=== PATIENT | female | born 1955 | race Caucasian/White ===

== ENCOUNTER 2016-08-27 02:20 | Emergency (ER) | payer BC ==
[2016-08-27] MEDS ORDERED: Sodium Chloride 0.9% 10 ML Syringe FLUSH PRN (02:32)
[2016-08-27] MEDS ORDERED: Sodium Chloride 0.9% 1,000 ML IV ONE (02:32)
[2016-08-27] MEDS ORDERED: Ondansetron 4 MG/2 ML SDV IVPUSH ONE (02:32)
[2016-08-27] MEDS ORDERED: Sodium Chloride 0.9% 2.5 ML Syringe FLUSH PRN (02:32)
--- NOTE | 2016-08-27 02:37 | EDM.PDOC ---
ED HPI GENERAL MEDICAL PROBLEM - General Chief Complaint: Abdominal Pain Stated Complaint: THROWING UP Time Seen by Provider: 08/27/16 02:26 - History of Present Illness INITIAL COMMENTS - FREE TEXT/NARRATIVE: HISTORY AND PHYSICAL: History of present illness: Patient's a 60-year-old female who's had prior cholecystectomy appendectomy and hysterectomy who presents with a concern of nausea and vomiting 1 hour she's had some crampy abdominal pain she denies fever chills urinary symptoms or any other concern is been no trauma she denies chest pain shortness of breath Review of systems: As per history of present illness and below otherwise all systems reviewed and negative. Past medical history: As per history of present illness and as reviewed below otherwise noncontributory. Surgical history: As per history of present illness and as reviewed below otherwise noncontributory. Social history: No reported history of drug or alcohol abuse. Family history: As per history of present illness and as reviewed below otherwise noncontributory. Physical exam: HEENT: Atraumatic, normocephalic, pupils reactive, negative for conjunctival pallor or scleral icterus, mucous membranes moist, throat clear, neck supple, nontender, trachea midline. Lungs: Clear to auscultation, breath sounds equal bilaterally, chest nontender. Heart: S1S2, regular, negative for clicks, rubs, or JVD. Abdomen: Soft, nondistended, nontender. Negative for masses or hepatosplenomegaly. Negative for costovertebral tenderness. Pelvis: Stable nontender. Genitourinary: Deferred. Rectal: Deferred. Extremities: Atraumatic, negative for cords or calf pain. Neurovascular unremarkable. Neuro: Awake, alert, oriented. Cranial nerves II through XII unremarkable. Cerebellum unremarkable. Motor and sensory unremarkable throughout. Exam nonfocal. Diagnostics: CBC CMP amylase lipase UA EKG chest x-ray CT abdomen and pelvis Therapeutics: Normal saline 1 L bolus Zofran 4 mg IV Impression: #1 vomiting Definitive disposition and diagnosis as appropriate pending reevaluation and review of above. Abdominal Pain Score (Numeric/FACES): 7 - Related Data Allergies Allergy/AdvReac Type Severity Reaction Status Date / Time acetaminophen Allergy Nausea Verified 08/27/16 02:32 [From Tylenol-Codeine] codeine phosphate Allergy Nausea Verified 08/27/16 02:32 [From Tylenol-Codeine] Iodinated Contrast- Oral and Allergy Rash Verified 08/27/16 02:32 IV Dye [Iodinated Contrast Media - IV Dye] morphine Allergy Nausea Verified 08/27/16 02:32 shellfish Allergy Hives Uncoded 08/27/16 02:32 Home Meds: Home Meds Levothyroxine [Levothroid] 125 mcg PO DAILY 12/13/13 [History] Past Medical History - Past Surgical History Other Neurological Surgeries/Procedures: BACK SURGERY Other Musculoskeletal Surgeries/Procedures:: Pt states multiple back surgeries, 11 screws Social & Family History - Tobacco Use Smoking Status *Q: Current Every Day Smoker Years of Tobacco use: 40 Packs/Tins Daily: 0.2 - Alcohol Use Days Per Week of Alcohol Use: 0 - Recreational Drug Use Recreational Drug Use: No ED ROS GENERAL - Review of Systems Review Of Systems: ROS reveals no pertinent complaints other than HPI. ED EXAM, GENERAL - Physical Exam Exam: See Below (See dictation) Course - Vital Signs Last Recorded V/S: Last Vital Signs Temp 35.8 C 08/27/16 05:00 Pulse 82 08/27/16 05:00 Resp 19 08/27/16 05:00 BP 144/70 H 08/27/16 05:00 Pulse Ox 97 08/27/16 05:00 - Orders/Labs/Meds Labs: Laboratory Tests 08/27/16 08/27/16 08/27/16 Range/Units 02:50 02:50 02:50 WBC 9.00 (4.0-11.0) K/uL RBC 4.73 (4.30-5.90) M/uL Hgb 14.6 (12.0-16.0) g/dL Hct 42.9 (36.0-46.0) % MCV 90.7 (80.0-98.0) fL MCH 30.9 (27.0-32.0) pg MCHC 34.0 (31.0-37.0) g/dL RDW Std Deviation 43.4 (28.0-62.0) fl RDW Coeff of Ronal 13 (11.0-15.0) % Plt Count 283 (150-400) K/uL MPV 9.80 (7.40-12.00) fL Neut % (Auto) 76.6 (48.0-80.0) % Lymph % (Auto) 17.8 (16.0-40.0) % [place] % (Auto) 5.1 (0.0-15.0) % Eos % (Auto) 0.4 (0.0-7.0) % Baso % (Auto) 0.1 (0.0-1.5) % Neut # (Auto) 6.9 H (1.4-5.7) K/uL Lymph # (Auto) 1.6 (0.6-2.4) K/uL [place] # (Auto) 0.5 (0.0-0.8) K/uL Eos # (Auto) 0.0 (0.0-0.7) K/uL Baso # (Auto) 0.0 (0.0-0.1) K/uL Nucleated RBC % 0.0 /100WBC Nucleated RBCs # 0 K/uL INR 0.93 (0.86-1.11) Sodium 138 (136-146) mmol/L Potassium 4.2 (3.5-5.1) mmol/L Chloride 107 (98-110) mmol/L Carbon Dioxide 20 L (21-31) mmol/L BUN 22 (6.0-23.0) mg/dL Creatinine 0.8 (0.6-1.5) mg/dL Est Cr Clr Drug Dosing 68.26 mL/min Estimated GFR (MDRD) > 60.0 ml/min Glucose 98 (60-110) mg/dL Calcium 9.2 (8.8-10.8) mg/dL Total Bilirubin 0.3 (0.1-1.5) mg/dL AST 28 (5-40) IU/L ALT 23 (8-54) IU/L Alkaline Phosphatase 81 (40-150) Total Protein 7.3 (6.0-8.0) g/dL Albumin 4.3 (3.4-4.8) g/dL Globulin 3.0 (2.0-3.5) g/dL Albumin/Globulin Ratio 1.4 (1.3-2.8) Amylase 87 (10-90) U/L Lipase 94 H (7-80) U/L Meds: Medications Discontinued Medications Generic Name Dose Route Start Last Admin Trade Name Freq PRN Reason Stop Dose Admin Sodium Chloride 1,000 mls @ 999 mls/hr 08/27/16 02:32 08/27/16 02:57 Normal Saline IV 08/27/16 03:32 999 mls/hr STAT ONE Administration Ondansetron HCl 4 mg 08/27/16 02:32 08/27/16 03:03 Zofran IVPUSH 08/27/16 02:33 4 mg ONETIME ONE Administration Sodium Chloride 10 ml 08/27/16 02:32 Saline Flush FLUSH ASDIRECTED PRN Keep Vein Open Sodium Chloride 2.5 ml 08/27/16 02:32 Saline Flush FLUSH ASDIRECTED PRN Keep Vein Open Departure - Departure Time of Disposition: 03:00 Disposition: Home, Self-Care 01 Condition: Good Clinical Impression: Vomiting, Dehydration - Discharge Information Instructions: Nausea and Vomiting, Adult, [id number] Referrals: Sunny Carrillo MD [Primary Care Provider] - Forms: ED Department Discharge
[2016-08-27 03:32] LABS: CHLORIDE,CL 107 mmol/L (98-110); SODIUM,NA 138 mmol/L (136-146)
[2016-08-27 05:00] VITALS: BP 144/70
--- NOTE | 2016-08-27 11:26 | CR ---
EXAM DATE: 08/27/16 PATIENT'S AGE: 60 Patient: ZHEN VALENTE Facility: [place], [place] Site . Site : 1955 Study: XRay Chest [id number]/27/2017 3:55:52 AM Ordering Physician: Leanne Hussein Final Report: INDICATION: Pain, shortness of breath TECHNIQUE: Chest 2 views. COMPARISON: January 21, 2016 FINDINGS: Cardiovascular and mediastinum: Heart size and vasculature are normal in caliber and appearance. Mediastinum is within normal limits. Lungs and pleural spaces: Lungs are clear. No sign of infiltrate or mass. No sign of pleural effusion. No pneumothorax. Bones and soft tissues: No significant findings. IMPRESSION: No sign of acute disease. Dictated by Vanesa Cazares MD @ Aug 27 2016 4:00AM (Electronic Signature) Report Signed by Proxy. OZ
--- NOTE | 2016-08-27 11:26 | CT ---
EXAM DATE: 08/27/16 PATIENT'S AGE: 60 Patient: ZHEN VALENTE Facility: [place], [place] Site . Site : 1955 Study: CT Abdomen/Pelvis WO CONT [id number]/27/[id number] 4:04:43 AM Ordering Physician: Leanne Hussein Final Report: INDICATION: Abdominal pain and vomiting TECHNIQUE: CT abdomen and pelvis without contrast. COMPARISON: None FINDINGS: Lower chest: Small hiatal hernia. Liver: Unremarkable. Spleen: Unremarkable. Pancreas: Unremarkable. Gallbladder and bile ducts: Status post cholecystectomy. Adrenal glands: Unremarkable. Kidneys: Horseshoe kidney. 2 nonobstructive stones in the right renal pole moiety, the largest measuring 0.3 centimeter. 2 punctate stones in the left renal moiety. No hydronephrosis. GI tract: Colonic diverticulosis. Vascular structures: Unremarkable. Lymph nodes: Unremarkable. Miscellaneous: Unremarkable. No free air or significant free fluid. Pelvic Organs: Limited evaluation due to streak artifact from right hip arthroplasty hardware. Bones: Right hip arthroplasty. Posterior spinal internal fixation hardware at L2 -S1. IMPRESSION: No acute intra-abdominal process identified. Horseshoe kidney with bilateral nonobstructive nephrolithiasis. Small hiatal hernia. Colonic diverticulosis. Status post cholecystectomy, right hip arthroplasty, and lumbar spine posterior fixation hardware placement. Please note that all CT scans at this facility use dose modulation, iterative reconstruction, and/or weight-based dosing when appropriate to reduce radiation dose to as low as reasonably achievable. Dictated by Vanesa Cazares MD @ Aug 27 2016 4:18AM (Electronic Signature) Report Signed by Proxy. MTDD
== END 2016-08-27 05:00 | disposition home or self-care (01) ==
LOC: MW.ED 02:20
DX: E86.0 Dehydration (principal); R11.10 Vomiting, unspecified; F17.210 Nicotine dependence, cigarettes, uncomplicated; Z90.49 Acquired absence of other specified parts of digestive tract; Z90.710 Acquired absence of both cervix and uterus; Z88.5 Allergy status to narcotic agent; Z91.013 Allergy to seafood; Z88.6 Allergy status to analgesic agent; Z91.041 Radiographic dye allergy status; Z79.899 Other long term (current) drug therapy
CPT/HCPCS: 36415; 71020; 74176; 80053; 82150; 83690; 85025; 85610; 93005; 96361; 96374; 99285; J2405; J7040; 99284

== ENCOUNTER 2016-11-11 12:26 | Emergency (ER) | payer OTHER, BC ==
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
[2016-11-11] MEDS ORDERED: Ketorolac 60 MG/2 ML SDV IM ONE (13:15)
--- NOTE | 2016-11-11 14:00 | CR ---
EXAMINATION: Right shoulder HISTORY: Pain COMPARISON: None TECHNIQUE: 3 views FINDINGS/IMPRESSION: There is no acute osseous abnormality, dislocation, or fracture. Moderate acromi oclavicular osteoarthritic changes are noted with a prominent inferior osteophyte. The glenohumeral j oint space is grossly preserved.
--- NOTE | 2016-11-11 14:09 | CR ---
EXAMINATION: Cervical spine HISTORY: Pain COMPARISON: 12/12/2015 TECHNIQUE: AP and lateral views FINDINGS: There is mild reversal of the midcervical lordosis, unchanged. The vertebral body heights a ppear maintained. Marginal osteophytes are noted. Facet alignment is preserved. No fracture or acute osseous abnormality identified. The prevertebral soft tissues are normal. IMPRESSION: Moderate degenerative changes without acute findings.
[2016-11-11 17:53] VITALS: BP 171/77
== END 2016-11-11 14:31 | disposition home or self-care (01) ==
LOC: MW.ED 12:26
DX: S13.4XXA Sprain of ligaments of cervical spine, initial encounter (principal); K21.9 Gastro-esophageal reflux disease without esophagitis; F17.210 Nicotine dependence, cigarettes, uncomplicated; Z88.6 Allergy status to analgesic agent; Z88.5 Allergy status to narcotic agent; Z91.041 Radiographic dye allergy status; Z91.013 Allergy to seafood; Z79.899 Other long term (current) drug therapy; V43.52XA Car driver injured in collision with other type car in traffic accident, initial encounter
CPT/HCPCS: 72040; 72040-26; 73030-26-RT; 73030-RT; 99283

== ENCOUNTER 2017-03-12 20:38 | Observation (INO) | payer BC ==
[2017-03-12] MEDS ORDERED: Sodium Chloride 0.9% 1,000 ML IV ONE (21:17)
[2017-03-12] MEDS ORDERED: Sodium Chloride 0.9% 10 ML Syringe FLUSH PRN (21:17)
[2017-03-12] MEDS ORDERED: Morphine 2 MG/ML Syringe IVPUSH ONE (21:17)
[2017-03-12] MEDS ORDERED: Sodium Chloride 0.9% 2.5 ML Syringe FLUSH PRN (21:17)
[2017-03-12] MEDS ORDERED: Ondansetron 4 MG/2 ML SDV IVPUSH ONE ×2 (21:17→23:02)
--- NOTE | 2017-03-12 21:22 | EDM.PDOC ---
ED HPI GENERAL MEDICAL PROBLEM - General Chief Complaint: Abdominal Pain Stated Complaint: PT HAS STOMACH PAINS Time Seen by Provider: 03/12/17 21:07 - History of Present Illness INITIAL COMMENTS - FREE TEXT/NARRATIVE: HISTORY AND PHYSICAL: History of present illness: The patient is a 61-year-old female who follows with Dr. Holt in our family practice clinic and saw him on Friday, 5 days ago, for a sinusitis for which she was placed on cough medication Omnicef and Flonase. She says that she has had continued coughing and has had some abdominal discomfort because of the cough on the right side but suddenly this evening one hour prior to coming here she had sudden onset of severe right sided and right lower abdominal pain. Patient said she was also in the clinic earlier today for some musculoskeletal shoulder pain that she has had in the past and she got a shot of Toradol which has improved that. Patient has not had a fever and has had the persistent cough but no shortness of breath or chest pain. She's had normal bowel movements today and normal urine output without dysuria frequency or flank pain. She has no history of any bowel issues but has had several abdominal surgeries including a VASQUEZ/BSO, appendectomy, cholecystectomy and anterior posterior back repair. She's had a screening colonoscopy in the past but has had no colon issues or bowel issues with these prior surgeries. Patient took cough medicine and Motrin prior to coming here and did eat earlier today. She states the pain is very severe and worse if she lies flat and better when she bends at the waist. She has no midline back pain. She has no discrete flank pain. Review of systems: As per history of present illness and below otherwise all systems reviewed and negative. Past medical history: As per history of present illness and as reviewed below otherwise noncontributory. Surgical history: As per history of present illness and as reviewed below otherwise noncontributory. Social history: No reported history of drug or alcohol abuse. Family history: As per history of present illness and as reviewed below otherwise noncontributory. Physical exam: Gen.: Well-developed well-nourished female who looks very uncomfortable in the room and has difficulty lying flat without bending knees due to discomfort. Vital signs are noted by me. HEENT: Atraumatic, normocephalic, pupils reactive, negative for conjunctival pallor or scleral icterus, mucous membranes moist, throat clear, neck supple, nontender, trachea midline. Lungs: Clear to auscultation, breath sounds equal bilaterally, chest nontender. Heart: S1S2, regular, negative for clicks, rubs, or JVD. Abdomen: Soft, nondistended, patient has several midline abdominal scars which are well-healed. A shunt has somewhat quiet bowel sounds and has tympany on percussion in the upper abdomen more on the right side with tenderness. She has voluntary guarding without involuntary guarding and no rebound but she has diffuse tenderness on the right side of her abdomen more specifically in the right lower quadrant. Negative for masses or hepatosplenomegaly. Negative for costovertebral tenderness. Pelvis: Stable nontender. Genitourinary: Deferred. Rectal: Deferred. Extremities: Atraumatic, negative for cords or calf pain. Neurovascular unremarkable. Neuro: Awake, alert, oriented. Cranial nerves II through XII unremarkable. Cerebellum unremarkable. Motor and sensory unremarkable throughout. Exam nonfocal. Diagnostics: CBC CMP amylase lipase UA urine culture if indicated lactic acid CT scan of the abdomen and pelvis 1 view upright abdominal film Therapeutics: IV IV fluids morphine Zofran Dilaudid Please note that the patient stated an allergy to IV contrast dye of getting a rash. I did order the CT scan initially with contrast and offered her premedication and she absolutely does not want to be premedicated and does not want to receive contrast. We will do the CT scan plain 7: Case was discussed with our surgeon harpoon engagement planning operator Dr. James who said that she would not do anything about this surgically but that she would likely need to be admitted for pain management and serial hemoglobins and if the hospitalist wanted her to be on consult she could be available as needed. 2250: Case was discussed with Dr. Johnson our hospitalist who agrees for observation admission. I've also discussed all testing results with the patient and at bedside and she is comfortable with admission. She continues to remain hemodynamically stable. Impression: Abdominal wall/rectus sheath hematoma status post coughing Definitive disposition and diagnosis as appropriate pending reevaluation and review of above. Abdomen Pain Score (Numeric/FACES): 10 - Related Data Allergies Allergy/AdvReac Type Severity Reaction Status Date / Time acetaminophen Allergy Nausea Verified 03/12/17 20:49 [From Tylenol-Codeine] codeine phosphate Allergy Nausea Verified 03/12/17 20:49 [From Tylenol-Codeine] Iodinated Contrast- Oral and Allergy Rash Verified 03/12/17 20:49 IV Dye [Iodinated Contrast Media - IV Dye] morphine Allergy Nausea Verified 03/12/17 20:49 shellfish Allergy Hives Uncoded 03/12/17 20:49 Home Meds: Home Meds Levothyroxine [Levothroid] 112 mcg PO DAILY 12/13/13 [History] Travoprost [Travatan Z] 1 drop EYEBOTH DAILY 11/11/16 [History] Past Medical History - Past Health History Medical/Surgical History: Denies Medical/Surgical History HEENT History: Reports: Glaucoma, Impaired Vision Gastrointestinal History: Reports: GERD Genitourinary History: Reports: None Neurological History: Reports: None Endocrine/Metabolic History: Reports: Hypothyroidism - Infectious Disease History Infectious Disease History: Reports: Chicken Pox, Measles, Mumps - Past Surgical History GI Surgical History: Reports: Cholecystectomy Female Surgical History: Reports: Hysterectomy Other Neurological Surgeries/Procedures: BACK SURGERY Musculoskeletal Surgical History: Reports: Hip Replacement, Other (See Below) Other Musculoskeletal Surgeries/Procedures:: Pt states multiple back surgeries, 11 screws Social & Family History - Family History Family Medical History: Noncontributory - Tobacco Use Smoking Status *Q: Current Every Day Smoker Years of Tobacco use: 40 Packs/Tins Daily: 1 - Caffeine Use Caffeine Use: Reports: Coffee Caffeine Use Comment: 5-6cups/day - Alcohol Use Days Per Week of Alcohol Use: 0 - Recreational Drug Use Recreational Drug Use: No ED ROS GENERAL - Review of Systems Review Of Systems: ROS reveals no pertinent complaints other than HPI. ED EXAM, GENERAL - Physical Exam Exam: See Below (See dictation) Course - Vital Signs Last Recorded V/S: Last Vital Signs Temp 36.3 C 03/12/17 22:39 Pulse 19 L 03/12/17 22:39 Resp 19 03/12/17 22:39 BP 144/67 H 03/12/17 22:39 Pulse Ox 94 L 03/12/17 22:39 - Orders/Labs/Meds Orders: Active Orders 24 hr Category Date Time Status Abdomen 1V Upright [CR] Stat Exams 03/12/17 21:22 Taken Abdomen Pelvis wo Cont [CT] Stat Exams 03/12/17 21:17 Taken Sodium Chloride 0.9% [Saline Flush] Med 03/12/17 21:17 Active 10 ml FLUSH ASDIRECTED PRN Sodium Chloride 0.9% [Saline Flush] Med 03/12/17 21:17 Active 2.5 ml FLUSH ASDIRECTED PRN Saline Lock Insert [OM.PC] Stat Oth 03/12/17 21:17 Ordered Medication Orders Sodium Chloride (Saline Flush) 10 ml FLUSH ASDIRECTED PRN PRN Reason: Keep Vein Open Sodium Chloride (Saline Flush) 2.5 ml FLUSH ASDIRECTED PRN PRN Reason: Keep Vein Open Labs: Laboratory Tests 03/12/17 03/12/17 03/12/17 Range/Units 09:30 21:08 21:08 WBC 6.16 (4.0-11.0) K/uL RBC 4.31 (4.30-5.90) M/uL Hgb 13.1 (12.0-16.0) g/dL Hct 38.0 (36.0-46.0) % MCV 88.2 (80.0-98.0) fL MCH 30.4 (27.0-32.0) pg MCHC 34.5 (31.0-37.0) g/dL RDW Std Deviation 41.2 (28.0-62.0) fl RDW Coeff of Ronal 13 (11.0-15.0) % Plt Count 264 (150-400) K/uL MPV 9.30 (7.40-12.00) fL Neut % (Auto) 39.6 L (48.0-80.0) % Lymph % (Auto) 46.4 H (16.0-40.0) % [place] % (Auto) 10.1 (0.0-15.0) % Eos % (Auto) 3.6 (0.0-7.0) % Baso % (Auto) 0.3 (0.0-1.5) % Neut # (Auto) 2.4 (1.4-5.7) K/uL Lymph # (Auto) 2.9 H (0.6-2.4) K/uL [place] # (Auto) 0.6 (0.0-0.8) K/uL Eos # (Auto) 0.2 (0.0-0.7) K/uL Baso # (Auto) 0.0 (0.0-0.1) K/uL Nucleated RBC % 0.0 /100WBC Nucleated RBCs # 0 K/uL Lactate 0.6 (0.20-2.00) mmol/L Sodium (136-146) mmol/L Potassium (3.5-5.1) mmol/L Chloride (98-110) mmol/L Carbon Dioxide (21-31) mmol/L BUN (6.0-23.0) mg/dL Creatinine (0.6-1.5) mg/dL Est Cr Clr Drug Dosing mL/min Estimated GFR (MDRD) ml/min Glucose (60-110) mg/dL Calcium (8.8-10.8) mg/dL Total Bilirubin (0.1-1.5) mg/dL AST (5-40) IU/L ALT (8-54) IU/L Alkaline Phosphatase (40-150) Total Protein (6.0-8.0) g/dL Albumin (3.4-4.8) g/dL Globulin (2.0-3.5) g/dL Albumin/Globulin Ratio (1.3-2.8) Amylase (10-90) U/L Lipase (7-80) U/L Urine Color YELLOW Urine Appearance CLEAR Urine pH 6.0 (5.0-8.0) Ur Specific [place] 1.010 (1.001-1.035) Urine Protein NEGATIVE (NEGATIVE) mg/dL Urine Glucose (UA) NEGATIVE (NEGATIVE) mg/dL Urine Ketones NEGATIVE (NEGATIVE) mg/dL Urine Occult Blood NEGATIVE (NEGATIVE) Urine Nitrite NEGATIVE (NEGATIVE) Urine Bilirubin NEGATIVE (NEGATIVE) Urine Urobilinogen 0.2 (<2.0) EU/dL Ur Leukocyte Esterase NEGATIVE (NEGATIVE) Urine RBC 0-1 (0-2/HPF) Urine WBC 0-1 (0-5/HPF) Ur Epithelial Cells RARE (NONE-FEW) Urine Bacteria RARE (NEGATIVE) 03/12/17 Range/Units 21:08 WBC (4.0-11.0) K/uL RBC (4.30-5.90) M/uL Hgb (12.0-16.0) g/dL Hct (36.0-46.0) % MCV (80.0-98.0) fL MCH (27.0-32.0) pg MCHC (31.0-37.0) g/dL RDW Std Deviation (28.0-62.0) fl RDW Coeff of Ronal (11.0-15.0) % Plt Count (150-400) K/uL MPV (7.40-12.00) fL Neut % (Auto) (48.0-80.0) % Lymph % (Auto) (16.0-40.0) % [place] % (Auto) (0.0-15.0) % Eos % (Auto) (0.0-7.0) % Baso % (Auto) (0.0-1.5) % Neut # (Auto) (1.4-5.7) K/uL Lymph # (Auto) (0.6-2.4) K/uL [place] # (Auto) (0.0-0.8) K/uL Eos # (Auto) (0.0-0.7) K/uL Baso # (Auto) (0.0-0.1) K/uL Nucleated RBC % /100WBC Nucleated RBCs # K/uL Lactate (0.20-2.00) mmol/L Sodium 133 L (136-146) mmol/L Potassium 4.2 (3.5-5.1) mmol/L Chloride 98 (98-110) mmol/L Carbon Dioxide 23 (21-31) mmol/L BUN 20 (6.0-23.0) mg/dL Creatinine 0.8 (0.6-1.5) mg/dL Est Cr Clr Drug Dosing 67.38 mL/min Estimated GFR (MDRD) > 60.0 ml/min Glucose 113 H (60-110) mg/dL Calcium 9.7 (8.8-10.8) mg/dL Total Bilirubin 0.2 (0.1-1.5) mg/dL AST 40 (5-40) IU/L ALT 26 (8-54) IU/L Alkaline Phosphatase 72 (40-150) Total Protein 7.3 (6.0-8.0) g/dL Albumin 4.2 (3.4-4.8) g/dL Globulin 3.1 (2.0-3.5) g/dL Albumin/Globulin Ratio 1.4 (1.3-2.8) Amylase 60 (10-90) U/L Lipase 79 (7-80) U/L Urine Color Urine Appearance Urine pH (5.0-8.0) Ur Specific [place] (1.001-1.035) Urine Protein (NEGATIVE) mg/dL Urine Glucose (UA) (NEGATIVE) mg/dL Urine Ketones (NEGATIVE) mg/dL Urine Occult Blood (NEGATIVE) Urine Nitrite (NEGATIVE) Urine Bilirubin (NEGATIVE) Urine Urobilinogen (<2.0) EU/dL Ur Leukocyte Esterase (NEGATIVE) Urine RBC (0-2/HPF) Urine WBC (0-5/HPF) Ur Epithelial Cells (NONE-FEW) Urine Bacteria (NEGATIVE) Meds: Medications Generic Name Dose Route Start Last Admin Trade Name Freq PRN Reason Stop Dose Admin Sodium Chloride 10 ml 03/12/17 21:17 Saline Flush FLUSH ASDIRECTED PRN Keep Vein Open Sodium Chloride 2.5 ml 03/12/17 21:17 Saline Flush FLUSH ASDIRECTED PRN Keep Vein Open Discontinued Medications Generic Name Dose Route Start Last Admin Trade Name Freq PRN Reason Stop Dose Admin Hydromorphone HCl 1 mg 03/12/17 22:49 03/12/17 22:56 Dilaudid IVPUSH 03/12/17 22:50 1 mg ONETIME ONE Administration Sodium Chloride 1,000 mls @ 999 mls/hr 03/12/17 21:17 03/12/17 21:30 Normal Saline IV 03/12/17 22:17 999 mls/hr STAT ONE Administration Morphine Sulfate 4 mg 03/12/17 21:17 03/12/17 21:33 Morphine IVPUSH 03/12/17 21:18 4 mg ONETIME ONE Administration Ondansetron HCl 4 mg 03/12/17 21:17 03/12/17 21:30 Zofran IVPUSH 03/12/17 21:18 4 mg ONETIME ONE Administration Departure - Departure Time of Disposition: 22:59 Disposition: Refer to Observation Condition: Fair Clinical Impression: Rectus sheath hematoma Qualifiers: Encounter type: initial encounter Qualified Code(s): S30.1XXA - Contusion of abdominal wall, initial encounter - Discharge Information Referrals: PCP,None [Primary Care Provider] - Forms: ED Department Discharge - My Orders Last 24 Hours: My Active Orders 03/12/17 21:17 Abdomen Pelvis wo Cont [CT] Stat Sodium Chloride 0.9% [Saline Flush] 10 ml FLUSH ASDIRECTED PRN Sodium Chloride 0.9% [Saline Flush] 2.5 ml FLUSH ASDIRECTED PRN Saline Lock Insert [OM.PC] Stat 03/12/17 21:22 Abdomen 1V Upright [CR] Stat - Assessment/Plan Last 24 Hours: My Active Orders 03/12/17 21:17 Abdomen Pelvis wo Cont [CT] Stat Sodium Chloride 0.9% [Saline Flush] 10 ml FLUSH ASDIRECTED PRN Sodium Chloride 0.9% [Saline Flush] 2.5 ml FLUSH ASDIRECTED PRN Saline Lock Insert [OM.PC] Stat 03/12/17 21:22 Abdomen 1V Upright [CR] Stat
[2017-03-12 21:42] LABS: CHLORIDE,CL 98 mmol/L (98-110); SODIUM,NA 133 mmol/L (136-146)
[2017-03-12] MEDS ORDERED: HYDROmorphone 2 MG/ML Syringe IVPUSH ONE (22:49)
[2017-03-12] MEDS ORDERED: Morphine 2 MG/ML Syringe IVPUSH PRN (23:53)
[2017-03-13] MEDS ORDERED: Ondansetron 4 MG/2 ML SDV IVPUSH PRN (00:59)
[2017-03-13] MEDS ORDERED: Omeprazole 20 MG Cap.CR PO SCH (00:59)
[2017-03-13] MEDS: oxyCODONE 5 MG Tab PO PRN ×4 (02:51→21:35)
[2017-03-13 06:11] LABS: CHLORIDE,CL 103 mmol/L (98-110); SODIUM,NA 134 mmol/L (136-146)
[2017-03-13] MEDS: Levothyroxine 112 MCG Tab PO SCH (06:34)
--- NOTE | 2017-03-13 09:03 | PCM.HP ---
H&P History of Present Illness - General Date of Service: 03/13/17 History Limitations: Reports: No Limitations - History of Present Illness Initial Comments - Free Text/Narative: 61 year old fm with history of hypothyroidism admitted for right abdominal wall hematoma. She presented to ED with severe right sided abdominal pain that was 11 /[address] abdomen plain revealed right abdominal wall hematoma. CT with contrast was recomended to r/o active bleed but patient refused due to prior history of adverse reaction to IV contrast. Patient states today that her pain is slightly improved from yesterday. At baseline it is 7/10 but it worsens with any type of movement of her body. SHe is tolerating liquids without difficulty. She attempted to have few bites of breakfast but it cased her nausea. Her pain improves with oxycodone. She was seen by her PCP last friday and was diagnosed with sinusitis for which she was prescribed cefdinir and flonase. She went back in to see him yesterday for shoulder pain and was given Toradol shot. Nguyễn started the evening she received her Toradol . Abdomen Pain Score (Numeric/FACES): 7 - Related Data Allergies/Adverse Reactions: Allergies Allergy/AdvReac Type Severity Reaction Status Date / Time Iodinated Contrast- Oral and Allergy Rash Verified 03/12/17 20:49 IV Dye [Iodinated Contrast Media - IV Dye] shellfish Allergy Hives Uncoded 03/12/17 20:49 Home Medications: Home Meds Levothyroxine [Levothroid] 112 mcg PO DAILY 12/13/13 [History] Travoprost [Travatan Z] 1 drop EYEBOTH BEDTIME 11/11/16 [History] Dorzolamide HCl/Timolol Maleat [Cosopt Eye Drops] 1 drop EYEBOTH DAILY 03/13/17 [History] Past Medical History - Past Health History Medical/Surgical History: Denies Medical/Surgical History HEENT History: Reports: Glaucoma, Impaired Vision Gastrointestinal History: Reports: GERD Genitourinary History: Reports: None Neurological History: Reports: None Endocrine/Metabolic History: Reports: Hypothyroidism - Infectious Disease History Infectious Disease History: Reports: Chicken Pox, Measles, Mumps - Past Surgical History GI Surgical History: Reports: Cholecystectomy Female Surgical History: Reports: Hysterectomy Other Neurological Surgeries/Procedures: BACK SURGERY Musculoskeletal Surgical History: Reports: Hip Replacement, Other (See Below) Other Musculoskeletal Surgeries/Procedures:: multiple back surgeries, 11 screws Social & Family History - Family History Family Medical History: Noncontributory - Tobacco Use Smoking Status *Q: Current Every Day Smoker Years of Tobacco use: 40 Packs/Tins Daily: 1 - Caffeine Use Caffeine Use: Reports: Coffee Caffeine Use Comment: 5-6cups/day - Alcohol Use Days Per Week of Alcohol Use: 0 - Recreational Drug Use Recreational Drug Use: No H&P Review of Systems - Review of Systems: Review Of Systems: See Below General: Reports: Decreased Appetite HEENT: Reports: No Symptoms Pulmonary: Reports: No Symptoms Cardiovascular: Reports: No Symptoms Gastrointestinal: Reports: Abdominal Pain Genitourinary: Reports: No Symptoms Musculoskeletal: Reports: No Symptoms Skin: Reports: No Symptoms Psychiatric: Reports: No Symptoms Neurological: Reports: No Symptoms Hematologic/Lymphatic: Reports: No Symptoms Immunologic: Reports: No Symptoms Exam - Exam Exam: See Below - Vital Signs Vital Signs: Last Vital Signs Temp 36.4 C 03/13/17 08:00 Pulse 64 03/13/17 08:00 Resp 14 03/13/17 08:00 BP 111/58 L 03/13/17 08:00 Pulse Ox 94 L 03/13/17 08:00 Weight: 77.111 kg - Exam General: Alert, Oriented HEENT: Conjunctiva Clear, EACs Clear, EOMI, Hearing Intact, Mucosa Moist & [place] , Nares Patent, Normal Nasal Septum, Posterior Pharynx Clear, Pupils Equal, Pupils Reactive, TMs Clear Neck: Supple, Trachea Midline Lungs: Clear to Auscultation, Normal Respiratory Effort Cardiovascular: Regular Rate, Regular Rhythm GI/Abdominal Exam: Normal Bowel Sounds, Soft, Guarding, Tender (RLQ, right middle ). No: Rigid, Hepatomegaly, Splenomegaly Rectal (Female) Exam: Normal Exam Back Exam: Normal Inspection Extremities: Normal Inspection, Normal Capillary Refill Skin: Warm, Dry, Intact Neurological: Cranial Nerves Intact, Reflexes Equal Bilateral Neuro Extensive - Mental Status: Alert, Oriented x3 - Patient Data Lab Results Last 24 hrs: Laboratory Results - last 24 hr 03/13/17 03/13/17 Range/Units 05:03 05:03 WBC 6.39 (4.0-11.0) K/uL RBC 3.54 L (4.30-5.90) M/uL Hgb 10.8 L (12.0-16.0) g/dL Hct 31.8 L (36.0-46.0) % MCV 89.8 (80.0-98.0) fL MCH 30.5 (27.0-32.0) pg MCHC 34.0 (31.0-37.0) g/dL RDW Std Deviation 42.0 (28.0-62.0) fl RDW Coeff of Ronal 13 (11.0-15.0) % Plt Count 221 (150-400) K/uL MPV 9.70 (7.40-12.00) fL Neut % (Auto) 51.8 (48.0-80.0) % Lymph % (Auto) 35.2 (16.0-40.0) % [place] % (Auto) 10.5 (0.0-15.0) % Eos % (Auto) 2.3 (0.0-7.0) % Baso % (Auto) 0.2 (0.0-1.5) % Neut # (Auto) 3.3 (1.4-5.7) K/uL Lymph # (Auto) 2.3 (0.6-2.4) K/uL [place] # (Auto) 0.7 (0.0-0.8) K/uL Eos # (Auto) 0.2 (0.0-0.7) K/uL Baso # (Auto) 0.0 (0.0-0.1) K/uL Nucleated RBC % 0.0 /100WBC Nucleated RBCs # 0 K/uL Sodium 134 L (136-146) mmol/L Potassium 4.7 (3.5-5.1) mmol/L Chloride 103 (98-110) mmol/L Carbon Dioxide 23 (21-31) mmol/L BUN 16 (6.0-23.0) mg/dL Creatinine 0.7 (0.6-1.5) mg/dL Est Cr Clr Drug Dosing 77.43 mL/min Estimated GFR (MDRD) > 60.0 ml/min Glucose 105 (60-110) mg/dL Calcium 8.6 L (8.8-10.8) mg/dL Result Diagrams: 03/13/17 05:03 03/13/17 05:03 *Q Meaningful Use (ADM) - VTE *Q VTE Criteria *Q: - Stroke *Q Stroke Criteria *Q: - AMI *Q AMI Criteria *Q: Problem List Initiated/Reviewed/Updated: Yes Orders Last 24hrs: Active Orders 24 hr Category Date Time Status Regular Diet [DIET] Diet 03/13/17 Breakfast Active Dorzolamide/Timolol [Cosopt 2%-0.5% Ophth Soln] Med 03/13/17 09:00 Active 0 ml EYEBOTH DAILY Levothyroxine Med 03/13/17 07:30 Active 112 mcg PO ACBREAKFAST Morphine Med 03/12/17 23:53 Active 2 mg IVPUSH Q2H PRN Omeprazole Med 03/14/17 07:30 Active 20 mg PO ACBREAKFAST Ondansetron [Zofran] Med 03/13/17 00:59 Active 4 mg IVPUSH Q4H PRN Travoprost [Travatan Z] Med 03/13/17 21:00 Active 1 drop EYEBOTH BEDTIME oxyCODONE Med 03/12/17 23:52 Active 5 mg PO Q4H PRN Medication Orders Dorzolamide/Timolol (Cosopt 2%-0.5% Ophth Soln) 0 ml EYEBOTH DAILY MARILOU Levothyroxine Sodium (Levothyroxine) 112 mcg PO ACBREAKFAST MARILOU Last Admin: 03/13/17 06:34 Dose: 112 mcg Morphine Sulfate (Morphine) 2 mg IVPUSH Q2H PRN PRN Reason: Pain Non-Formulary Medication (Travoprost [Travatan Z]) 1 drop EYEBOTH BEDTIME MARILOU Omeprazole (Omeprazole) 20 mg PO ACBREAKFAST MARILOU Ondansetron HCl (Zofran) 4 mg IVPUSH Q4H PRN PRN Reason: Nausea/Vomiting Oxycodone HCl (Oxycodone) 5 mg PO Q4H PRN PRN Reason: Pain Last Admin: 03/13/17 08:45 Dose: 5 mg Admin: 03/13/17 02:51 Dose: 5 mg Sodium Chloride (Saline Flush) 10 ml FLUSH ASDIRECTED PRN PRN Reason: Keep Vein Open Sodium Chloride (Saline Flush) 2.5 ml FLUSH ASDIRECTED PRN PRN Reason: Keep Vein Open Assessment/Plan Comment:: 61 yo fm admitted for Abdominal Wall Hematoma seen on CT Abdomen. It is right rectus sheath hematoma present measuring 10.7 x 7 x 13.3 cm with small amount of surrounding edema in the preperitoneal space. CT was non-contrast therefore unable to r/o active haemorrhage. Due to history of contrast reaction patient refused CT with contrast. Dr. James general surgery was consulted from ED and she recommended admit for obs and pain control but no surgical management unless active blood loss. #Abdominal Wall Hematoma -Hb decreased from 13.1 to 10.8 overnight -tolerating liquids but not tolerating solid -denies bowel movements or flatulence plan: -admit to obs -Serial Hb [id number] -Morphine and Oxycodone for pain control -consult general surgery if
[2017-03-13] MEDS: Dorzolamide/Timolol 2%-0.5% Ophth Soln 10 ML Bottle EYEBOTH SCH (09:20)
--- NOTE | 2017-03-13 11:11 | CR ---
EXAM DATE: 03/12/17 PATIENT'S AGE: 61 Patient: ZHEN VALENTE Facility: [place], [place] Site . Site : [id number] Study: XRay Abdomen [id number]/10/2018 9:52:50 PM Ordering Physician: Felicitas Romero Final Report: INDICATION: Abdominal pain. Evaluate for free air. COMPARISON: None. FINDINGS/IMPRESSION: No free intraperitoneal air is identified on this upright radiograph of the upper abdomen. Included bowel gas pattern is within normal limits. Right upper quadrant cholecystectomy clips are noted. Postoperative changes are seen in the lower lumbar spine. Dictated by Carloz Michele MD @ 03/12/2017 10:04:04 PM Dictated by: Carloz Michele MD @ 03/12/2017 22:04:26 (Electronic Signature) Report Signed by Proxy. OZ
[2017-03-13] MEDS ORDERED: Polyethylene Glycol 3350 Powder 17 GM Packet PO PRN (12:59)
[2017-03-13] MEDS: Docusate Sodium 100 MG Cap PO SCH ×2 (13:29→21:04)
--- NOTE | 2017-03-13 15:52 | PCM.CONS ---
H&P History of Present Illness - General Date of Service: 03/13/17 Admit Problem/Dx: Rectus sheath hematoma Source of Information: Patient History Limitations: Reports: No Limitations - History of Present Illness Initial Comments - Free Text/Narative: Patient is a 61 year old female who was admited with a right rectus sheath hematoma. She was diagnosed with sinusitis and along with that has had post nasal drip. This has caused forceful coughing. She was taking 400mg of Motrin and is on a baby aspirin daily. Last evening she developed severe lower abdominal pain. She presented to the ED. A CT of the abdomen pelvis showed a 10cm right lower abdominal rectus sheath hematoma. She is allergic to contrast dye and refused further studies. She was vitally stable, but was admitted for pain control. Her repeat hemoglobin was initially 13.1 then dropped to 10.8 this morning. This afternoon on recheck she was 11.5. She has some nausea but this has improved with pain control. She has never vomited. She tolerated a diet this afternoon. She has been passing flatus. She feels much better after narcotic pain meds, but still has discomfort along the anterior right abdomen with coughing, deep breathing and sitting up. Abdomen Pain Score (Numeric/FACES): 7 - Related Data Allergies/Adverse Reactions: Allergies Allergy/AdvReac Type Severity Reaction Status Date / Time Iodinated Contrast- Oral and Allergy Rash Verified 03/12/17 20:49 IV Dye [Iodinated Contrast Media - IV Dye] shellfish Allergy Hives Uncoded 03/12/17 20:49 Home Medications: Home Meds Levothyroxine [Levothroid] 112 mcg PO DAILY 12/13/13 [History] Travoprost [Travatan Z] 1 drop EYEBOTH BEDTIME 11/11/16 [History] Cefdinir 300 mg PO Q12H 03/13/17 [History] Codeine/Promethazine HCl [Promethazine-Codeine Syrup] 5 ml PO Q6HR PRN 03/13/17 [History] Dorzolamide HCl/Timolol Maleat [Cosopt Eye Drops] 1 drop EYEBOTH DAILY 03/13/17 [History] Fluticasone Propionate [Flovent Diskus] 50 mcg IH BID 03/13/17 [History] Past Medical History - Past Health History Medical/Surgical History: Denies Medical/Surgical History HEENT History: Reports: Glaucoma, Impaired Vision Gastrointestinal History: Reports: GERD Genitourinary History: Reports: None Neurological History: Reports: None Endocrine/Metabolic History: Reports: Hypothyroidism - Infectious Disease History Infectious Disease History: Reports: Chicken Pox, Measles, Mumps - Past Surgical History GI Surgical History: Reports: Cholecystectomy Female Surgical History: Reports: Hysterectomy Other Neurological Surgeries/Procedures: BACK SURGERY Musculoskeletal Surgical History: Reports: Hip Replacement, Other (See Below) Other Musculoskeletal Surgeries/Procedures:: multiple back surgeries, 11 screws Social & Family History - Family History Family Medical History: Noncontributory - Tobacco Use Smoking Status *Q: Current Every Day Smoker Years of Tobacco use: 40 Packs/Tins Daily: 1 - Caffeine Use Caffeine Use: Reports: Coffee Caffeine Use Comment: 5-6cups/day - Alcohol Use Days Per Week of Alcohol Use: 0 - Recreational Drug Use Recreational Drug Use: No H&P Review of Systems - Review of Systems: Review Of Systems: ROS reveals no pertinent complaints other than HPI. Exam - Exam Exam: See Below - Vital Signs Vital Signs: Last Vital Signs Temp 36.4 C 03/13/17 12:00 Pulse 78 03/13/17 12:00 Resp 16 03/13/17 12:00 BP 126/63 03/13/17 12:00 Pulse Ox 94 L 03/13/17 12:00 Weight: 77.111 kg - Exam Quality Assessment: Supplemental Oxygen General: Alert, Oriented HEENT: Conjunctiva Clear, Mucosa Moist & [place], Pupils Equal, Pupils Reactive Lungs: Clear to Auscultation, Normal Respiratory Effort Cardiovascular: Regular Rate, Regular Rhythm GI/Abdominal Exam: Soft, No Distention, No Mass, Tender (along right lower anterior abdomen ) - Patient Data Lab Results Last 24 hrs: Laboratory Results - last 24 hr 03/13/17 03/13/17 03/13/17 Range/Units 05:03 05:03 11:15 WBC 6.39 (4.0-11.0) K/uL RBC 3.54 L (4.30-5.90) M/uL Hgb 10.8 L (12.0-16.0) g/dL Hct 31.8 L (36.0-46.0) % MCV 89.8 (80.0-98.0) fL MCH 30.5 (27.0-32.0) pg MCHC 34.0 (31.0-37.0) g/dL RDW Std Deviation 42.0 (28.0-62.0) fl RDW Coeff of Ronal 13 (11.0-15.0) % Plt Count 221 (150-400) K/uL MPV 9.70 (7.40-12.00) fL Neut % (Auto) 51.8 (48.0-80.0) % Lymph % (Auto) 35.2 (16.0-40.0) % [place] % (Auto) 10.5 (0.0-15.0) % Eos % (Auto) 2.3 (0.0-7.0) % Baso % (Auto) 0.2 (0.0-1.5) % Neut # (Auto) 3.3 (1.4-5.7) K/uL Lymph # (Auto) 2.3 (0.6-2.4) K/uL [place] # (Auto) 0.7 (0.0-0.8) K/uL Eos # (Auto) 0.2 (0.0-0.7) K/uL Baso # (Auto) 0.0 (0.0-0.1) K/uL Nucleated RBC % 0.0 /100WBC Nucleated RBCs # 0 K/uL INR 0.94 (0.86-1.11) Sodium 134 L (136-146) mmol/L Potassium 4.7 (3.5-5.1) mmol/L Chloride 103 (98-110) mmol/L Carbon Dioxide 23 (21-31) mmol/L BUN 16 (6.0-23.0) mg/dL Creatinine 0.7 (0.6-1.5) mg/dL Est Cr Clr Drug Dosing 77.43 mL/min Estimated GFR (MDRD) > 60.0 ml/min Glucose 105 (60-110) mg/dL Calcium 8.6 L (8.8-10.8) mg/dL Blood Type Antibody Screen 03/13/17 03/13/17 Range/Units 11:15 12:18 WBC (4.0-11.0) K/uL RBC (4.30-5.90) M/uL Hgb 11.5 L (12.0-16.0) g/dL Hct 33.6 L (36.0-46.0) % MCV (80.0-98.0) fL MCH (27.0-32.0) pg MCHC (31.0-37.0) g/dL RDW Std Deviation (28.0-62.0) fl RDW Coeff of Ronal (11.0-15.0) % Plt Count (150-400) K/uL MPV (7.40-12.00) fL Neut % (Auto) (48.0-80.0) % Lymph % (Auto) (16.0-40.0) % [place] % (Auto) (0.0-15.0) % Eos % (Auto) (0.0-7.0) % Baso % (Auto) (0.0-1.5) % Neut # (Auto) (1.4-5.7) K/uL Lymph # (Auto) (0.6-2.4) K/uL [place] # (Auto) (0.0-0.8) K/uL Eos # (Auto) (0.0-0.7) K/uL Baso # (Auto) (0.0-0.1) K/uL Nucleated RBC % /100WBC Nucleated RBCs # K/uL INR (0.86-1.11) Sodium (136-146) mmol/L Potassium (3.5-5.1) mmol/L Chloride (98-110) mmol/L Carbon Dioxide (21-31) mmol/L BUN (6.0-23.0) mg/dL Creatinine (0.6-1.5) mg/dL Est Cr Clr Drug Dosing mL/min Estimated GFR (MDRD) ml/min Glucose (60-110) mg/dL Calcium (8.8-10.8) mg/dL Blood Type A POSITIVE Antibody Screen NEGATIVE Result Diagrams: 03/13/17 12:18 03/13/17 05:03 Consult PN Assessment/Plan Procedures: Procedures ASSAY OF AMYLASE (08/27/16) ASSAY OF BLOOD/URIC ACID (12/13/13) ASSAY OF FREE THYROXINE (03/29/14) ASSAY OF LIPASE (08/27/16) ASSAY OF TOTAL THYROXINE (03/29/14) ASSAY THYROID STIM HORMONE (01/20/17) BLOOD GASES ANY COMBINATION (08/16/14) C-REACTIVE PROTEIN (12/16/13) CHEST X-RAY 1 VIEW FRONTAL (01/21/16) CHEST X-RAY 2VW FRONTAL&LATL (08/27/16) CLOSTRIDIUM AG IA (07/04/15) COMPLETE CBC W/AUTO DIFF WBC (01/20/17) COMPREHEN METABOLIC PANEL (08/27/16) CONTRST X-RAY UPPR GI TRACT (07/12/15) CRYPTOSPORIDIUM AG IA (06/26/15) CT ABD & PELVIS W/O CONTRAST (08/27/16) ELECTROCARDIOGRAM TRACING (08/27/16) EMERGENCY DEPT VISIT (11/11/16) EMERGENCY DEPT VISIT (08/27/16) EMERGENCY DEPT VISIT (01/21/16) EMERGENCY DEPT VISIT (01/16/15) EMERGENCY DEPT VISIT (08/16/14) EMERGENCY DEPT VISIT (02/15/14) EMERGENCY DEPT VISIT (12/13/13) FIBRIN DEGRADATION QUANT (08/16/14) FREE ASSAY (FT-3) (03/29/14) GIARDIA AG IA (06/26/15) HETEROPHILE ANTIBODY SCREEN (08/16/14) HYDRATE IV INFUSION ADD-ON (08/27/16) HYDRATION IV INFUSION INIT (08/16/14) LACTOFERRIN FECAL (QUAL) (06/26/15) LIPID PANEL (01/20/17) LUNG PERF&VENTILAT DIFERENTL (08/16/14) METABOLIC PANEL TOTAL CA (08/16/14) PROTHROMBIN TIME (08/27/16) RBC SED RATE AUTOMATED (07/06/15) ROUTINE VENIPUNCTURE (01/20/17) STOOL CULTR AEROBIC BACT EA (06/26/15) THER/PROPH/DIAG INJ IV PUSH (08/27/16) THER/PROPH/DIAG INJ SC/IM (12/13/13) THER/PROPH/DIAG IV INF INIT (01/21/16) TX/PRO/DX INJ NEW DRUG ADDON (01/21/16) VIT D 1 25-DIHYDROXY (07/06/15) VITAMIN D 25 HYDROXY (01/20/17) WITHDRAWAL OF ARTERIAL BLOOD (08/16/14) X-RAY EXAM L-S SPINE 2/3 VWS (01/16/15) X-RAY EXAM NECK SPINE 2-3 VW (11/11/16) X-RAY EXAM OF FOOT (02/02/14) X-RAY EXAM OF HIP (02/02/14) X-RAY EXAM OF PELVIS (02/02/14) X-RAY EXAM OF SHOULDER (11/11/16) X-RAY EXAM OF WRIST (12/13/13) (1) Rectus sheath hematoma SNOMED Code(s): 043694512 Code(s): S30.1XXA - CONTUSION OF ABDOMINAL WALL, INITIAL ENCOUNTER Current Visit: Yes Qualifiers: Encounter type: initial encounter Qualified Code(s): S30.1XXA - Contusion of abdominal wall, initial encounter Problem List Initiated/Reviewed/Updated: Yes Plan: She most likely tore an abdominal muscle with coughing and developed the hematoma because she was on NSAIDs and ASA. She should avoid any anticoagulants for at least one week. She and I discussed the anatomy of the hematoma. She is at risk of developing and ileus and should continue to take a daily stool softner for at least a week if not for two weeks (i.e. miralax, senna, docusate) . Since her hemoglobin is stable she is most likely done bleeding and can go home with pain control. She can follow up with me in two weeks. If she has dizziness, lightheadedness, increasing abdominal pain or distension, and or fevers/chills she should return to the ED right away. This can be managed conservatively but will take several months to resolve.
[2017-03-13] MEDS: Cefdinir 300 MG Cap PO SCH (18:19)
[2017-03-13] MEDS: Codeine/Promethazine 10-6.25 MG/5 ML Syrup 5 ML UD Cup PO PRN (18:19)
[2017-03-13] MEDS ORDERED: Non-Formulary Medication 1 Each (Travoprost [Travatan Z] 1 DROP) EYEBOTH SCH (21:00)
[2017-03-13] MEDS: FLOVENT INHALER INH SCH (21:05)
[2017-03-14] MEDS: Codeine/Promethazine 10-6.25 MG/5 ML Syrup 5 ML UD Cup PO PRN ×2 (00:22→08:57)
[2017-03-14] MEDS: FLOVENT INHALER INH SCH (05:48)
[2017-03-14] MEDS: Cefdinir 300 MG Cap PO SCH (06:10)
[2017-03-14] MEDS: Levothyroxine 112 MCG Tab PO SCH (06:52)
[2017-03-14] MEDS ORDERED: Omeprazole 20 MG Cap.CR PO SCH (07:30)
[2017-03-14] MEDS: Docusate Sodium 100 MG Cap PO SCH (08:59)
[2017-03-14] MEDS: Dorzolamide/Timolol 2%-0.5% Ophth Soln 10 ML Bottle EYEBOTH SCH (09:07)
[2017-03-14] MEDS: oxyCODONE 5 MG Tab PO PRN (10:52)
--- NOTE | 2017-03-14 11:55 | PCM.PN ---
- General Info Date of Service: 03/14/17 Admission Dx/Problem (Free Text): Rectus sheath hematoma Subjective Update: Feeling nauseated this morning. No increase in pain, but does feel more pain from sitting to standing position and feels like she has to hold her right lower abdomen when ambulating. No chest pain SOB. No lightheadedness or dizziness. Functional Status: Reports: Pain Controlled - Review of Systems General: Denies: Fever HEENT: Reports: Sinus Congestion Pulmonary: Reports: No Symptoms. Denies: Shortness of Breath Cardiovascular: Reports: No Symptoms. Denies: Chest Pain, Edema Gastrointestinal: Reports: Abdominal Pain (RLQ), Diarrhea, Nausea. Denies: Constipation, Vomiting Genitourinary: Reports: No Symptoms. Denies: Dysuria, Frequency, Burning Skin: Reports: No Symptoms. Denies: Cyanosis Neurological: Reports: No Symptoms. Denies: Confusion Psychiatric: Reports: No Symptoms. Denies: Confusion - Patient Data Vitals - Most Recent: Last Vital Signs Temp 97.8 F 03/14/17 08:00 Pulse 91 03/14/17 08:00 Resp 16 03/14/17 08:00 BP 132/69 03/14/17 08:00 Pulse Ox 90 L 03/14/17 08:00 Weight - Most Recent: 77.111 kg I&O - Last 24 Hours: Intake & Output 03/13/17 03/14/17 03/14/17 22:59 06:59 14:59 Intake Total 900 500 Output Total 1300 1100 Balance -400 -600 Lab Results Last 24 Hours: Laboratory Results - last 24 hr 03/13/17 03/13/17 03/14/17 Range/Units 11:15 12:18 05:22 WBC 5.27 (4.0-11.0) K/uL RBC 3.23 L (4.30-5.90) M/uL Hgb 11.5 L 9.9 L (12.0-16.0) g/dL Hct 33.6 L 29.0 L (36.0-46.0) % MCV 89.8 (80.0-98.0) fL MCH 30.7 (27.0-32.0) pg MCHC 34.1 (31.0-37.0) g/dL RDW Std Deviation 43.0 (28.0-62.0) fl RDW Coeff of Ronal 13 (11.0-15.0) % Plt Count 224 (150-400) K/uL MPV 8.80 (7.40-12.00) fL Neut % (Auto) 45.7 L (48.0-80.0) % Lymph % (Auto) 39.1 (16.0-40.0) % [place] % (Auto) 11.8 (0.0-15.0) % Eos % (Auto) 3.2 (0.0-7.0) % Baso % (Auto) 0.2 (0.0-1.5) % Neut # (Auto) 2.4 (1.4-5.7) K/uL Lymph # (Auto) 2.1 (0.6-2.4) K/uL [place] # (Auto) 0.6 (0.0-0.8) K/uL Eos # (Auto) 0.2 (0.0-0.7) K/uL Baso # (Auto) 0.0 (0.0-0.1) K/uL Nucleated RBC % 0.0 /100WBC Nucleated RBCs # 0 K/uL Blood Type A POSITIVE Antibody Screen NEGATIVE Med Orders - Current: Current Medications Cefdinir (Omnicef) 300 mg PO Q12H [facility] Last Admin: 03/14/17 06:10 Dose: 300 mg Docusate Sodium (Colace) 100 mg PO BID [facility] Last Admin: 03/14/17 08:59 Dose: Not Given Dorzolamide/Timolol (Cosopt 2%-0.5% Ophth Soln) 0 ml EYEBOTH DAILY [facility] Last Admin: 03/14/17 09:07 Dose: 1 drop Levothyroxine Sodium (Levothyroxine) 112 mcg PO ACBREAKFAST [facility] Last Admin: 03/14/17 06:52 Dose: 112 mcg Morphine Sulfate (Morphine) 2 mg IVPUSH Q2H PRN PRN Reason: Pain Non-Formulary Medication (Travoprost [Travatan Z]) 1 drop EYEBOTH BEDTIME [facility] Last Admin: 03/13/17 22:35 Dose: 1 drop Omeprazole (Omeprazole) 20 mg PO ACBREAKFAST [facility] Last Admin: 03/14/17 06:52 Dose: 20 mg Ondansetron HCl (Zofran) 4 mg IVPUSH Q4H PRN PRN Reason: Nausea/Vomiting Last Admin: 03/14/17 08:50 Dose: 4 mg Oxycodone HCl (Oxycodone) 5 mg PO Q4H PRN PRN Reason: Pain Last Admin: 03/14/17 10:52 Dose: 5 mg Polyethylene Glycol (Miralax) 17 gm PO BEDTIME PRN PRN Reason: Constipation Promethazine HCl/Codeine (Phenergan With Codeine) 5 ml PO Q6HR PRN PRN Reason: Cough Last Admin: 03/14/17 08:57 Dose: 5 ml Sodium Chloride (Saline Flush) 10 ml FLUSH ASDIRECTED PRN PRN Reason: Keep Vein Open Sodium Chloride (Saline Flush) 2.5 ml FLUSH ASDIRECTED PRN PRN Reason: Keep Vein Open Discontinued Medications Hydromorphone HCl (Dilaudid) 1 mg IVPUSH ONETIME ONE Stop: 03/12/17 22:50 Last Admin: 03/12/17 22:56 Dose: 1 mg Sodium Chloride (Normal Saline) 1,000 mls @ 999 mls/hr IV STAT ONE Stop: 03/12/17 22:17 Last Admin: 03/12/17 21:30 Dose: 999 mls/hr Morphine Sulfate (Morphine) 4 mg IVPUSH ONETIME ONE Stop: 03/12/17 21:18 Last Admin: 03/12/17 21:33 Dose: 4 mg Omeprazole (Omeprazole) 20 mg PO DAILY [facility] Last Admin: 03/13/17 01:08 Dose: 20 mg Ondansetron HCl (Zofran) 4 mg IVPUSH ONETIME ONE Stop: 03/12/17 21:18 Last Admin: 03/12/17 21:30 Dose: 4 mg Ondansetron HCl (Zofran) 4 mg IVPUSH ONETIME ONE Stop: 03/12/17 23:03 Last Admin: 03/12/17 23:07 Dose: 4 mg Flovent Inhaler 1 each INH BIDRT [facility] Last Admin: 03/14/17 05:48 Dose: Not Given - Exam General: Alert, Oriented, Cooperative, No Acute Distress Lungs: Clear to Auscultation, Normal Respiratory Effort Cardiovascular: Regular Rate, Regular Rhythm GI/Abdominal Exam: Normal Bowel Sounds, Soft, No Organomegaly, No Distention, No Abnormal Bruit, No Mass, Pelvis Stable, Tender (RLQ and surrounding area.) Skin: No: Ecchymosis (No bruising noted to RLQ) Neurological: No New Focal Deficit Psy/Mental Status: Alert, Normal Affect, Normal Mood - Problem List & Annotations (1) Rectus sheath hematoma SNOMED Code(s): 928412991 Code(s): S30.1XXA - CONTUSION OF ABDOMINAL WALL, INITIAL ENCOUNTER Status: Acute Current Visit: Yes Qualifiers: Encounter type: initial encounter Qualified Code(s): S30.1XXA - Contusion of abdominal wall, initial encounter (2) Nausea & vomiting SNOMED Code(s): 94638056 Code(s): R11.2 - NAUSEA WITH VOMITING, UNSPECIFIED Status: Acute Current Visit: No Qualifiers: Vomiting type: bilious vomiting Qualified Code(s): R11.14 - Bilious vomiting (3) Sinusitis SNOMED Code(s): 64133783 Code(s): J32.9 - CHRONIC SINUSITIS, UNSPECIFIED Status: Acute Current Visit: No Qualifiers: Sinusitis location: maxillary Chronicity: acute Recurrence: recurrent Qualified Code(s): J01.01 - Acute recurrent maxillary sinusitis - Problem List Review Problem List Initiated/Reviewed/Updated: Yes - My Orders Last 24 Hours: My Active Orders 03/13/17 12:59 Polyethylene Glycol 3350 [MiraLAX] 17 gm PO BEDTIME PRN 03/13/17 13:00 Docusate Sodium [Colace] 100 mg PO BID 03/14/17 12:00 HEMOGLOBIN/HEMATOCRIT,HH [HEME] Routine - Plan Plan:: 61 yo fm admitted for Abdominal Wall Hematoma seen on CT Abdomen. 1. Abdominal Wall Hematoma : Hgb 9.9 today from 11.5 yesterday afternoon. Patient denies increase in pain, no lightheadedness or dizziness. Realy eager to be discharged home. Dr. James general surgery was consulted from ED and she recommended admit for obs and pain control but no surgical management unless active blood loss. Contacted Dr James this morning, will repeat hgb at noon and make decisions on discharged based off that. Had large diarrhea this morning, will monitor. Hold Colace today. Continue Oxycodone for pain PRN. 2. Sinusitis: Continuing Cefdinir. Monitor. Cough syrup ordered to suppress cough. VTE prophlyaxis: SCDs only due to hematoma. Dispo: possible this afternoon after HH.
--- NOTE | 2017-03-14 12:12 | CT ---
EXAM DATE: 03/12/17 PATIENT'S AGE: 61 Patient: ZHEN VALENTE Facility: [facility] Site . Site : [id number] Study: CT-Abdomen/Pelvis WO CONT [id number]/10/2018 10:14:43 PM Ordering Physician: Felicitas Romero Final Report: INDICATION: Right lower quadrant pain TECHNIQUE: CT Abdomen and pelvis without i.v. contrast. Coronal and sagittal reformats were obtained. CONTRAST: None COMPARISON: 08/27/2016 FINDINGS: Lower chest: Unremarkable. Liver: Unremarkable. Spleen: Unremarkable. Pancreas: Unremarkable. Gallbladder: Previous cholecystectomy noted without significant intra- or extrahepatic biliary ductal dilatation seen. Kidney: The patient has a horseshoe kidney noted with punctate calcific debris seen in the left lower pole moiety. Adrenal: Unremarkable. Bowel: Unremarkable. The appendix is not identified. Small fat containing umbilical hernia is noted. Vascular: Unremarkable. Lymph: Unremarkable. Peritoneum: There is a large right rectus sheath hematoma present measuring 10.7 x 7 x 13.3 cm with small amount of surrounding edema in the preperitoneal space. The presence of active hemorrhage cannot be excluded without the use of intravenous contrast. No pneumoperitoneum is seen. No significant ascites is noted. Pelvis: The patient is status post prior hysterectomy. Mild bladder distention is noted. Soft tissue: Evaluation of the pelvic soft tissues and osseous structures are limited by beam hardening artifacts from the right hip prosthesis. Bone: Anterior and posterior transpedicular fusion is seen from L3-S1. IMPRESSION: 1. There is a large right rectus sheath hematoma present measuring 10.7 x 7 x 13.3 cm with small amount of surrounding edema in the preperitoneal space. The presence of active hemorrhage cannot be excluded without the use of intravenous contrast. Dictated by: MD @ 03/12/2017 22:56:00 ----- ADDENDUM ----- The study was dictated by Marcelo Bee M.D. Dictated by Marcelo Bee MD @ Mar 13 2017 11:18PM Signed by: Marcelo Bee MD @03/13/2017 11:19:16 PM (Electronic Signature) Report Signed by Proxy. OZ
[2017-03-14 12:27] VITALS: BP 142/78
--- NOTE | 2017-03-14 12:34 | PCM.DCSUM1 ---
Discharge Summary - Hospital Course Brief History: 61 year old fm with history of hypothyroidism admitted for right abdominal wall hematoma. She presented to ED with severe right sided abdominal pain that was 11/[address] abdomen plain revealed right abdominal wall hematoma. CT with contrast was recomended to r/o active bleed but patient refused due to prior history of adverse reaction to IV contrast. Patient states today that her pain is slightly improved from yesterday. At baseline it is 7/10 but it worsens with any type of movement of her body. She is tolerating liquids without difficulty. She attempted to have few bites of breakfast but it cased her nausea. Her pain improves with oxycodone. She was seen by her PCP last friday and was diagnosed with sinusitis for which she was prescribed cefdinir and flonase. She went back in to see him yesterday for shoulder pain and was given Toradol shot. Nguyễn started the evening she received her Toradol . - Discharge Data Discharge Date: 03/14/17 Discharge Disposition: Home, Self-Care 01 Condition: Good - Discharge Diagnosis/Problem(s) (1) Rectus sheath hematoma SNOMED Code(s): 032537296 ICD Code: S30.1XXA - CONTUSION OF ABDOMINAL WALL, INITIAL ENCOUNTER Status : Acute Current Visit: Yes Qualifiers: Encounter type: initial encounter Qualified Code(s): S30.1XXA - Contusion of abdominal wall, initial encounter (2) Nausea & vomiting SNOMED Code(s): 98867371 ICD Code: R11.2 - NAUSEA WITH VOMITING, UNSPECIFIED Status: Acute Current Visit: No Qualifiers: Vomiting type: bilious vomiting Qualified Code(s): R11.14 - Bilious vomiting (3) Sinusitis SNOMED Code(s): 65328962 ICD Code: J32.9 - CHRONIC SINUSITIS, UNSPECIFIED Status: Acute Current Visit: No Qualifiers: Sinusitis location: maxillary Chronicity: acute Recurrence: recurrent Qualified Code(s): J01.01 - Acute recurrent maxillary sinusitis - Patient Summary/Data Consults: Consultations 03/13/17 10:50 Consult to Physician [CONS] Routine - Patient Instructions Diet: Usual Diet as Tolerated Activity: No Strenuous Activities, Rest and Relax Today Notify Provider of: Fever, Nausea and/or Vomiting Other/Special Instructions: -Avoid Ibuprofen or other NSAIDs. -Continue your cough suppressant as prescribed by PCP. -Continue your Cefdinir as prescribed by PCP. - Discharge Plan Prescriptions/Med Rec: Docusate Sodium [Colace] 100 mg PO DAILY 14 Days #14 cap oxyCODONE 5 mg PO Q4H PRN #30 tablet PRN Reason: Pain Home Medications: Home Meds Levothyroxine [Levothroid] 112 mcg PO DAILY 12/13/13 [History] Travoprost [Travatan Z] 1 drop EYEBOTH BEDTIME 11/11/16 [History] Cefdinir 300 mg PO Q12H 03/13/17 [History] Codeine/Promethazine HCl [Promethazine-Codeine Syrup] 5 ml PO Q6HR PRN 03/13/17 [History] Docusate Sodium [Colace] 100 mg PO DAILY 14 Days #14 cap 03/13/17 [Rx] Dorzolamide HCl/Timolol Maleat [Cosopt Eye Drops] 1 drop EYEBOTH DAILY 03/13/17 [History] oxyCODONE 5 mg PO Q4H PRN #30 tablet 03/14/17 [Rx] Patient Handouts: Oxycodone tablets or capsules, Docusate capsules Referrals: Gretchen James MD [Physician] - 03/21/17 8:30 am Edilberto Holt [Resident] - 03/17/17 10:30 am - Discharge Summary/Plan Comment DC Time >30 min.: No Discharge Summary/Plan Comment: Discharge Diagnoses: R rectus sheath hematoma Nausea and vomiting-improved Sinusitis Shira was admitted secondary to pain control due to rectus sheath hematoma this was likely caused secondary to forceful coughing which came along with sinusitis and post nasal drip. Today hgb remains stable, 11.3 at noon today. She is feeling somewhat better. She is taking CL diet and some soft foods well. Still feeling not well, but is very eager to be discharged home. Pain is controlled with Oxycodone and it has not worsened. She is to follow up with PCP and Dr James next week. She will have labwork before her appointment with Dr Holt. She is to keep heavy lifting and activity to a minimum. Keep stools soft with colace due to pain medication. She is to return to ED or clinic if concerns should arise. She was educated on sign and symptoms of continued blood loss, such as extreme fatigue, shortness of breath, chest pain, lightheadedness and dizziness. Her and her verbalized understanding. - Patient Data Vitals - Most Recent: Last Vital Signs Temp 98.1 F 03/14/17 12:24 Pulse 72 03/14/17 12:24 Resp 16 03/14/17 12:24 BP 142/78 H 03/14/17 12:24 Pulse Ox 94 L 03/14/17 12:24 Weight - Most Recent: 77.111 kg I&O - Last 24 hours: Intake & Output 03/13/17 03/14/17 03/14/17 22:59 06:59 14:59 Intake Total 900 500 Output Total 1300 1100 Balance -400 -600 Lab Results - Last 24 hrs: Laboratory Results - last 24 hr 03/14/17 03/14/17 Range/Units 05:22 12:11 WBC 5.27 (4.0-11.0) K/uL RBC 3.23 L (4.30-5.90) M/uL Hgb 9.9 L 11.3 L (12.0-16.0) g/dL Hct 29.0 L 34.2 L (36.0-46.0) % MCV 89.8 (80.0-98.0) fL MCH 30.7 (27.0-32.0) pg MCHC 34.1 (31.0-37.0) g/dL RDW Std Deviation 43.0 (28.0-62.0) fl RDW Coeff of Ronal 13 (11.0-15.0) % Plt Count 224 (150-400) K/uL MPV 8.80 (7.40-12.00) fL Neut % (Auto) 45.7 L (48.0-80.0) % Lymph % (Auto) 39.1 (16.0-40.0) % [place] % (Auto) 11.8 (0.0-15.0) % Eos % (Auto) 3.2 (0.0-7.0) % Baso % (Auto) 0.2 (0.0-1.5) % Neut # (Auto) 2.4 (1.4-5.7) K/uL Lymph # (Auto) 2.1 (0.6-2.4) K/uL [place] # (Auto) 0.6 (0.0-0.8) K/uL Eos # (Auto) 0.2 (0.0-0.7) K/uL Baso # (Auto) 0.0 (0.0-0.1) K/uL Nucleated RBC % 0.0 /100WBC Nucleated RBCs # 0 K/uL Med Orders - Current: Current Medications Cefdinir (Omnicef) 300 mg PO Q12H [facility] Last Admin: 03/14/17 06:10 Dose: 300 mg Docusate Sodium (Colace) 100 mg PO BID [facility] Last Admin: 03/14/17 08:59 Dose: Not Given Dorzolamide/Timolol (Cosopt 2%-0.5% Ophth Soln) 0 ml EYEBOTH DAILY [facility] Last Admin: 03/14/17 09:07 Dose: 1 drop Levothyroxine Sodium (Levothyroxine) 112 mcg PO ACBREAKFAST [facility] Last Admin: 03/14/17 06:52 Dose: 112 mcg Morphine Sulfate (Morphine) 2 mg IVPUSH Q2H PRN PRN Reason: Pain Non-Formulary Medication (Travoprost [Travatan Z]) 1 drop EYEBOTH BEDTIME [facility] Last Admin: 03/13/17 22:35 Dose: 1 drop Omeprazole (Omeprazole) 20 mg PO ACBREAKFAST [facility] Last Admin: 03/14/17 06:52 Dose: 20 mg Ondansetron HCl (Zofran) 4 mg IVPUSH Q4H PRN PRN Reason: Nausea/Vomiting Last Admin: 03/14/17 08:50 Dose: 4 mg Oxycodone HCl (Oxycodone) 5 mg PO Q4H PRN PRN Reason: Pain Last Admin: 03/14/17 10:52 Dose: 5 mg Polyethylene Glycol (Miralax) 17 gm PO BEDTIME PRN PRN Reason: Constipation Promethazine HCl/Codeine (Phenergan With Codeine) 5 ml PO Q6HR PRN PRN Reason: Cough Last Admin: 03/14/17 08:57 Dose: 5 ml Sodium Chloride (Saline Flush) 10 ml FLUSH ASDIRECTED PRN PRN Reason: Keep Vein Open Sodium Chloride (Saline Flush) 2.5 ml FLUSH ASDIRECTED PRN PRN Reason: Keep Vein Open Discontinued Medications Hydromorphone HCl (Dilaudid) 1 mg IVPUSH ONETIME ONE Stop: 03/12/17 22:50 Last Admin: 03/12/17 22:56 Dose: 1 mg Sodium Chloride (Normal Saline) 1,000 mls @ 999 mls/hr IV STAT ONE Stop: 03/12/17 22:17 Last Admin: 03/12/17 21:30 Dose: 999 mls/hr Morphine Sulfate (Morphine) 4 mg IVPUSH ONETIME ONE Stop: 03/12/17 21:18 Last Admin: 03/12/17 21:33 Dose: 4 mg Omeprazole (Omeprazole) 20 mg PO DAILY [facility] Last Admin: 03/13/17 01:08 Dose: 20 mg Ondansetron HCl (Zofran) 4 mg IVPUSH ONETIME ONE Stop: 03/12/17 21:18 Last Admin: 03/12/17 21:30 Dose: 4 mg Ondansetron HCl (Zofran) 4 mg IVPUSH ONETIME ONE Stop: 03/12/17 23:03 Last Admin: 03/12/17 23:07 Dose: 4 mg Flovent Inhaler 1 each INH BIDRT [facility] Last Admin: 03/14/17 05:48 Dose: Not Given *Q Meaningful Use (DIS) - VTE *Q VTE Criteria *Q: - Stroke *Q Stroke Criteria *Q: - AMI *Q AMI Criteria *Q:
== END 2017-03-14 13:45 | disposition home or self-care (01) ==
LOC: MW.ED 20:38 → MW.MS 23:08
PROVIDERS: ADMIT Internal Medicine; ATTEND Internal Medicine
DX: S30.1XXA Contusion of abdominal wall, initial encounter (principal); E03.9 Hypothyroidism, unspecified; R11.2 Nausea with vomiting, unspecified; J01.00 Acute maxillary sinusitis, unspecified; H40.9 Unspecified glaucoma; K21.9 Gastro-esophageal reflux disease without esophagitis; F17.200 Nicotine dependence, unspecified, uncomplicated; Z79.899 Other long term (current) drug therapy; Z91.041 Radiographic dye allergy status; Z91.013 Allergy to seafood; Z90.49 Acquired absence of other specified parts of digestive tract; Z90.710 Acquired absence of both cervix and uterus
CPT/HCPCS: 36415; 74018; 74176; 80048; 80053; 81001; 82150; 83605; 83690; 85014; 85018; 85025; 85610; 86850; 86900; 86901; 96361; 96374; 96375; 96376; 99285; A9270; J1170; J2270; J2405; J7040; 99284; G0378

== ENCOUNTER 2017-03-18 12:37 | Emergency (ER) | payer BC ==
[2017-03-18 13:05] VITALS: BP 149/70
--- NOTE | 2017-03-18 13:26 | EDM.PDOC ---
ED HPI GENERAL MEDICAL PROBLEM - General Chief Complaint: Upper Extremity Injury/Pain Stated Complaint: RIGHT ARM PAIN Time Seen by Provider: 03/18/17 13:13 - History of Present Illness INITIAL COMMENTS - FREE TEXT/NARRATIVE: HISTORY AND PHYSICAL: History of present illness: Patient is 61-year-old female presents with concern of right hand and wrist pain she had a recent IV on that side and has some small ecchymosis but no significant swelling or warmth on examination. There's been no other trauma or concern although patient has documentation of having had prior visits for right wrist and hand pain and documented degenerative joint disease and was placed in a splint patient and family deny that this may be related. There's been no fever chills nausea vomiting or IV recently was for a rectus sheath hematoma. Review of systems: As per history of present illness and below otherwise all systems reviewed and negative. Past medical history: As per history of present illness and as reviewed below otherwise noncontributory. Surgical history: As per history of present illness and as reviewed below otherwise noncontributory. Social history: No reported history of drug or alcohol abuse. Family history: As per history of present illness and as reviewed below otherwise noncontributory. Physical exam: HEENT: Atraumatic, normocephalic, pupils reactive, negative for conjunctival pallor or scleral icterus, mucous membranes moist, throat clear, neck supple, nontender, trachea midline. Lungs: Clear to auscultation, breath sounds equal bilaterally, chest nontender. Heart: S1S2, regular, negative for clicks, rubs, or JVD. Abdomen: Soft, nondistended, nontender. Negative for masses or hepatosplenomegaly. Negative for costovertebral tenderness. Pelvis: Stable nontender. Genitourinary: Deferred. Rectal: Deferred. Extremities: Patient is a small ecchymosis on the dorsal aspect of her right hand there is no hematoma no erythema and no warmth there is no point or localized tenderness neurovascular exam is unremarkable Neuro: Awake, alert, oriented. Cranial nerves II through XII unremarkable. Cerebellum unremarkable. Motor and sensory unremarkable throughout. Exam nonfocal. Diagnostics: X-ray right hand/wrist Therapeutics: Sling Impression: #1 right hand/wrist pain #2 degenerative joint disease Definitive disposition and diagnosis as appropriate pending reevaluation and review of above. Right Wrist Pain Score (Numeric/FACES): 10 - Related Data Allergies Allergy/AdvReac Type Severity Reaction Status Date / Time Iodinated Contrast- Oral and Allergy Rash Verified 03/12/17 20:49 IV Dye [Iodinated Contrast Media - IV Dye] shellfish Allergy Hives Uncoded 03/12/17 20:49 Home Meds: Home Meds Levothyroxine [Levothroid] 112 mcg PO DAILY 12/13/13 [History] Travoprost [Travatan Z] 1 drop EYEBOTH BEDTIME 11/11/16 [History] Cefdinir 300 mg PO Q12H 03/13/17 [History] Codeine/Promethazine HCl [Promethazine-Codeine Syrup] 5 ml PO Q6HR PRN 03/13/17 [History] Dorzolamide HCl/Timolol Maleat [Cosopt Eye Drops] 1 drop EYEBOTH DAILY 03/13/17 [History] oxyCODONE 5 mg PO Q4H PRN #30 tablet 03/14/17 [Rx] Cyclobenzaprine HCl 5 mg PO 03/18/17 [History] Past Medical History - Past Health History Medical/Surgical History: Denies Medical/Surgical History HEENT History: Reports: Glaucoma, Impaired Vision Gastrointestinal History: Reports: GERD Genitourinary History: Reports: None Neurological History: Reports: None Endocrine/Metabolic History: Reports: Hypothyroidism - Infectious Disease History Infectious Disease History: Reports: Chicken Pox, Measles, Mumps - Past Surgical History GI Surgical History: Reports: Cholecystectomy Female Surgical History: Reports: Hysterectomy Other Neurological Surgeries/Procedures: BACK SURGERY Musculoskeletal Surgical History: Reports: Hip Replacement, Other (See Below) Other Musculoskeletal Surgeries/Procedures:: multiple back surgeries, 11 screws Social & Family History - Family History Family Medical History: Noncontributory - Tobacco Use Smoking Status *Q: Current Every Day Smoker Years of Tobacco use: 40 Packs/Tins Daily: 1 - Caffeine Use Caffeine Use: Reports: Coffee Caffeine Use Comment: 5-6cups/day - Alcohol Use Days Per Week of Alcohol Use: 0 - Recreational Drug Use Recreational Drug Use: No Review of Systems - Review of Systems Review Of Systems: ROS reveals no pertinent complaints other than HPI. ED EXAM, GENERAL - Physical Exam Exam: See Below (See dictation) Course - Vital Signs Last Recorded V/S: Last Vital Signs Temp 36.8 C 03/18/17 13:02 Pulse 90 03/18/17 13:02 Resp 24 H 03/18/17 13:02 BP 149/70 H 03/18/17 13:02 Pulse Ox 95 03/18/17 13:02 - Orders/Labs/Meds Orders: Active Orders 24 hr Category Date Time Status Hand 2V Rt [CR] Stat Exams 03/18/17 13:16 Ordered Wrist 2V Rt [CR] Stat Exams 03/18/17 13:16 Ordered Departure - Departure Time of Disposition: 13:25 Disposition: Home, Self-Care 01 Condition: Good Clinical Impression: Right hand pain, Degenerative joint disease - Discharge Information Referrals: Sunny Carrillo MD [Primary Care Provider] - Additional Instructions: The following information is given to patients seen in the emergency department who are being discharged to home. This information is to outline your options for follow-up care. We provide all patients seen in our emergency department with a follow-up referral. The need for follow-up, as well as the timing and circumstances, are variable depending upon the specifics of your emergency department visit. If you don't have a primary care physician on staff, we will provide you with a referral. We always advise you to contact your personal physician following an emergency department visit to inform them of the circumstance of the visit and for follow-up with them and/or the need for any referrals to a consulting specialist. The emergency department will also refer you to a specialist when appropriate. This referral assures that you have the opportunity for followup care with a specialist. All of these measure are taken in an effort to provide you with optimal care, which includes your followup. Under all circumstances we always encourage you to contact your private physician who remains a resource for coordinating your care. When calling for followup care, please make the office aware that this follow-up is from your recent emergency room visit. If for any reason you are refused follow-up, please contact the [facility] emergency department at and asked to speak to the emergency department charge nurse. [facility] specialty clinic-Plastics [address] [place] [address] [phone] [place] as directed follow-up hand surgeon above call to schedule appointment follow-up private medical doctor in 1-2 days return as needed as discussed - My Orders Last 24 Hours: My Active Orders 03/18/17 13:16 Hand 2V Rt [CR] Stat Wrist 2V Rt [CR] Stat - Assessment/Plan Last 24 Hours: My Active Orders 03/18/17 13:16 Hand 2V Rt [CR] Stat Wrist 2V Rt [CR] Stat
--- NOTE | 2017-03-18 14:04 | CR ---
EXAMINATION: Right hand and right wrist HISTORY: Pain COMPARISON: Radiographs dated 12/13/2013. TECHNIQUE: 2 views of the right wrist and 2 views of the right hand FINDINGS: The visualized osseous structures appear osteopenic. No definite fracture or acute osseous abnormality identified. Mild osteoarthritic changes noted within the wrists most prominent medially. Radiocarpal alignment is grossly preserved. Mild first CMC arthritis. IMPRESSION: 1. Mild degenerative changes without acute findings. 2. Generalized osteopenia.
== END 2017-03-18 14:35 | disposition home or self-care (01) ==
LOC: MW.ED 12:37
DX: M19.031 Primary osteoarthritis, right wrist (principal); E03.9 Hypothyroidism, unspecified; Z91.041 Radiographic dye allergy status; Z91.013 Allergy to seafood; Z79.899 Other long term (current) drug therapy; F17.210 Nicotine dependence, cigarettes, uncomplicated
CPT/HCPCS: 73100-26-RT; 73100-RT; 73120-26-RT; 73120-RT; 99283

== ENCOUNTER 2018-10-03 09:38 | Emergency (ER) | payer BC ==
[2018-10-03] MEDS ORDERED: Lidocaine 2% Viscous Solution 15 ML Cup PO ONE (10:00)
[2018-10-03] MEDS ORDERED: Benzocaine 20% Topical Spray UD MUCMEM ONE (10:00)
--- NOTE | 2018-10-03 10:04 | EDM.PDOC ---
ED HPI GENERAL MEDICAL PROBLEM - General Chief Complaint: ENT Problem Stated Complaint: MOUTH COMPLAINT Time Seen by Provider: 10/03/18 09:56 - History of Present Illness INITIAL COMMENTS - FREE TEXT/NARRATIVE: HISTORY AND PHYSICAL: History of present illness: The patient is a 62-year-old female who presents with complaints of pain and swelling to her left lower jaw that started yesterday. The patient says that her dentist is retired and she tried to make some calls today and was unable to get in with anybody. She is currently taking azithromycin for a cough and upper respiratory tract infection and she is concerned that she is going to start developing an abscess. She has some known dental problems and old fillings and she is not concerned if any of those have triggered this. She is able to eat and swallow but says that there is discomfort with chewing in that area. She has no other systemic complaints Review of systems: As per history of present illness and below otherwise all systems reviewed and negative. Past medical history: As per history of present illness and as reviewed below otherwise noncontributory. Surgical history: As per history of present illness and as reviewed below otherwise noncontributory. Social history: No reported history of drug or alcohol abuse. Family history: As per history of present illness and as reviewed below otherwise noncontributory. Physical exam: Well developed well-nourished female who is nontoxic and vital signs are noted by me HEENT: Atraumatic, normocephalic, pupils reactive, negative for conjunctival pallor or scleral icterus, mucous membranes moist, throat clear, neck supple, nontender, trachea midline. There is no visible evidence of any facial swelling and no cervical adenopathy or nuchal rigidity. There are several areas of dental disease appreciated and a lot of old silver fillings. At the left lower molar area there is some mild gum swelling and some dental caries seen as well as old fillings and there is tenderness and some region without fluctuance Lungs: Clear to auscultation, breath sounds equal bilaterally, chest nontender. Heart: S1S2, regular rate and rhythm no overt murmurs Abdomen: Soft, nondistended, nontender. NABS Pelvis: Deferred Genitourinary: Deferred. Rectal: Deferred. Extremities: Atraumatic, no edema. Neurovascular unremarkable. Neuro: Awake, alert, oriented. Cranial nerves II through XII unremarkable. Cerebellum unremarkable. Motor and sensory unremarkable throughout. Exam nonfocal. Diagnostics: [] Therapeutics: Dental balls Impression: []Dental pain/early infection Definitive disposition and diagnosis as appropriate pending reevaluation and review of above. Oral/Mouth Pain Score (Numeric/FACES): 7 - Related Data Allergies Allergy/AdvReac Type Severity Reaction Status Date / Time Iodinated Contrast- Oral and Allergy Rash Verified 10/03/18 09:45 IV Dye [Iodinated Contrast Media - IV Dye] shellfish Allergy Hives Uncoded 10/03/18 09:45 Home Meds: Home Meds Levothyroxine [Levothroid] 112 mcg PO DAILY 12/13/13 [History] Travoprost [Travatan Z] 1 drop EYEBOTH BEDTIME 11/11/16 [History] Dorzolamide HCl/Timolol Maleat [Cosopt Eye Drops] 1 drop EYEBOTH DAILY 03/13/17 [History] Cyclobenzaprine HCl 5 mg PO ASDIRECTED 03/18/17 [History] Azithromycin 500 mg PO DAILY 10/03/18 [History] Past Medical History - Past Health History Medical/Surgical History: Denies Medical/Surgical History HEENT History: Reports: Glaucoma, Impaired Vision Gastrointestinal History: Reports: GERD Genitourinary History: Reports: None Neurological History: Reports: None Endocrine/Metabolic History: Reports: Hypothyroidism - Infectious Disease History Infectious Disease History: Reports: Chicken Pox, Measles, Mumps - Past Surgical History GI Surgical History: Reports: Cholecystectomy Female Surgical History: Reports: Hysterectomy Other Neurological Surgeries/Procedures: BACK SURGERY Musculoskeletal Surgical History: Reports: Hip Replacement, Other (See Below) Other Musculoskeletal Surgeries/Procedures:: multiple back surgeries, 11 screws Social & Family History - Family History Family Medical History: Noncontributory - Tobacco Use Smoking Status *Q: Current Every Day Smoker Years of Tobacco use: 40 Packs/Tins Daily: 0.5 - Caffeine Use Caffeine Use: Reports: None Caffeine Use Comment: 5-6cups/day - Recreational Drug Use Recreational Drug Use: No ED ROS GENERAL - Review of Systems Review Of Systems: ROS reveals no pertinent complaints other than HPI. ED EXAM, GENERAL - Physical Exam Exam: See Below (See dictation) Course - Vital Signs Last Recorded V/S: Last Vital Signs Temp 36.2 C 10/03/18 09:47 Pulse 89 10/03/18 09:47 Resp 19 10/03/18 09:47 BP 168/88 H 10/03/18 09:47 Pulse Ox 95 10/03/18 09:47 - Orders/Labs/Meds Meds: Medications Discontinued Medications Generic Name Dose Route Start Last Admin Trade Name Randy PRN Reason Stop Dose Admin Benzocaine 2 each 10/03/18 10:00 Hurricaine One 20% MUCMEM 10/03/18 10:01 ONETIME ONE Lidocaine HCl 15 ml 10/03/18 10:00 Xylocaine 2% Viscous PO 10/03/18 10:01 ONETIME ONE Departure - Departure Time of Disposition: 10:03 Disposition: Home, Self-Care 01 Condition: Good Clinical Impression: Pain, dental, Dental infection - Discharge Information Referrals: PCP,Unknown [Primary Care Provider] - Additional Instructions: The following information is given to patients seen in the emergency department who are being discharged to home. This information is to outline your options for follow-up care. We provide all patients seen in our emergency department with a follow-up referral. The need for follow-up, as well as the timing and circumstances, are variable depending upon the specifics of your emergency department visit. If you don't have a primary care physician on staff, we will provide you with a referral. We always advise you to contact your personal physician following an emergency department visit to inform them of the circumstance of the visit and for follow-up with them and/or the need for any referrals to a consulting specialist. The emergency department will also refer you to a specialist when appropriate. This referral assures that you have the opportunity for followup care with a specialist. All of these measure are taken in an effort to provide you with optimal care, which includes your followup. Under all circumstances we always encourage you to contact your private physician who remains a resource for coordinating your care. When calling for followup care, please make the office aware that this follow-up is from your recent emergency room visit. If for any reason you are refused follow-up, please contact the [facility] emergency department at and ask to speak to the emergency department charge nurse. [facility] Primary care- [place] [address] Ice to face for any swelling and use dental balls you have been given here in the ED for pain management. Please connect with local dentist for reevaluation and care of these problems and return to ER as needed and as discussed
[2018-10-03 10:19] VITALS: BP 141/79; PULSE 77
== END 2018-10-03 10:15 | disposition home or self-care (01) ==
LOC: MW.ED 09:38
DX: K04.7 Periapical abscess without sinus (principal); K02.9 Dental caries, unspecified; E03.9 Hypothyroidism, unspecified; H40.9 Unspecified glaucoma; F17.210 Nicotine dependence, cigarettes, uncomplicated; Z79.899 Other long term (current) drug therapy
CPT/HCPCS: 99282; A9270